=== PATIENT | female | born 1940 | race Hispanic/Latino ===

== ENCOUNTER → 2018-03-14 | Outpatient (CLI) | payer OTHER, MEDICARE | END | disposition home or self-care (01) | LOC: RAH 14:40 | PROVIDERS: ATTEND Orthopaedic Surgery | DX: M19.011 Primary osteoarthritis, right shoulder (principal); M25.411 Effusion, right shoulder | CPT/HCPCS: 73221 ==

== ENCOUNTER → 2018-06-27 | Outpatient (CLI) | payer OTHER, MEDICARE ==
[~2018-06-27] MED LIST: FE F1CAP9 PO; HYDR-4457 PO; LEVO25TA54 PO; LORA10TA7 PO; LOSA1TAB37 PO; NAPR-1192 PO; OLOP2.5D6 OU; PANT20TA12 PO; PRAV40TA3 PO; SPIR50TA5 PO
== END | disposition home or self-care (01) ==
LOC: SHCH 09:09
PROVIDERS: ATTEND Internal Medicine Cardiovascular Disease
DX: I07.1 Rheumatic tricuspid insufficiency (principal); I48.91 Unspecified atrial fibrillation; I10 Essential (primary) hypertension
CPT/HCPCS: 93306

== ENCOUNTER → 2018-07-12 | Outpatient (CLI) | payer OTHER, MEDICARE ==
[~2018-07-12] VITALS: Ht 149.9 cm; Wt 56.7 kg
[~2018-07-12] MED LIST changes: -FE F1CAP9 PO; -HYDR-4457 PO; -LEVO25TA54 PO; -LORA10TA7 PO; -LOSA1TAB37 PO; -NAPR-1192 PO; -OLOP2.5D6 OU; -PANT20TA12 PO; -PRAV40TA3 PO; +REGADENOSON 0.4 MG/5 ML PF SYG IVP SCH; -SPIR50TA5 PO
== END | disposition home or self-care (01) ==
LOC: SHCH 08:27
PROVIDERS: ATTEND Internal Medicine Cardiovascular Disease
DX: R94.31 Abnormal electrocardiogram [ECG] [EKG] (principal); E78.5 Hyperlipidemia, unspecified; R06.00 Dyspnea, unspecified
CPT/HCPCS: 78452; 93017; 96374; A9500 ×2; J2785